=== PATIENT | male | born 1940 | race Caucasian/White ===

== ENCOUNTER → 2022-07-27 | Outpatient (CLI) | payer MEDICARE ==
[2022-07-27 12:20] LABS: BASOPHILS % (AUTO) 0 % (0-10); EOSINOPHILS # (AUTO) 0.1 10^3/uL (0.0-0.3); EOSINOPHILS % (AUTO) 2 % (0-10); HEMATOCRIT 39 % (40-54); HEMOGLOBIN 13.4 g/dL (13.3-17.7); LYMPHOCYTES # (AUTO) 1.5 10^3/uL (1.0-4.0); LYMPHOCYTES % (AUTO) 21 % (12-44); MEAN CORPUSCULAR HEMOGLOBIN 33 pg (25-34); MEAN CORPUSCULAR HGB CONC 34 g/dL (32-36); MEAN CORPUSCULAR VOLUME 94 fL (80-99); MEAN PLATELET VOLUME 9.3 fL (9.0-12.2); MONOCYTES # (AUTO) 0.5 10^3/uL (0.0-1.0); MONOCYTES % (AUTO) 7 % (0-12); NEUTROPHILS % (AUTO) 69 % (42-75); PLATELET COUNT 184 10^3/uL (130-400); WHITE BLOOD COUNT 7.2 10^3/uL (4.3-11.0)
[2022-07-27 12:34] LABS: BILIRUBIN,URINE NEGATIVE (NEGATIVE); CLARITY,URINE CLOUDY; COLOR,URINE YELLOW; GLUCOSE, URINE (UA) NEGATIVE (NEGATIVE); KETONES,URINE TRACE (NEGATIVE); LEUKOCYTE ESTERASE ,URINE 1+ (NEGATIVE); NITRITE,URINE NEGATIVE (NEGATIVE); PROTEIN,URINE TRACE (NEGATIVE)
[2022-07-27 12:41] LABS: CALCIUM 9.5 MG/DL (8.5-10.1); CREATININE SERUM 1.26 MG/DL (0.60-1.30); POTASSIUM 3.8 MMOL/L (3.6-5.0)
[2022-07-27 12:47] LABS: BACTERIA,URINE MODERATE /HPF; SQUAMOUS EPITHELIAL CELL,UR 0-2 /HPF
--- NOTE | 2022-07-27 12:58 | Diagnostic Imaging Report ---
INDICATION: Preoperative evaluation prior to knee surgery. COMPARISON: None. FINDINGS: Frontal and lateral views of the chest demonstrate normal heart size and pulmonary vascularity. The lungs are clear. There are no signs of infiltrate, pleural effusions or pneumothoraces. Calcified granuloma of the right upper lung is noted. The visualized osseous structures show no acute abnormalities. IMPRESSION: 1. No acute process. No signs of infiltrates, effusions or pneumothoraces. Dictated by: Dictated on workstation # [id number]
--- NOTE | 2022-07-27 14:01 | Diagnostic Imaging Report ---
INDICATION: Preoperative evaluation prior to total knee replacement. COMPARISON: None. FINDINGS: Multiple radiographic views of the left knee were obtained and show advanced tricompartmental osteoarthritic changes. This consists of joint space narrowing with osteophyte formations, greatest involving the medial tibial femoral compartment. No acute osseous abnormality is seen. Osseous structures are intact. Joint spaces are maintained. Small suprapatellar joint effusion is also noted. No unexpected radiopaque foreign bodies are seen. IMPRESSION: 1. No acute fracture or dislocation of the left knee. 2. Advanced osteoarthritic changes. Dictated by: Dictated on workstation # [id number]
== END ==
LOC: ORTHO 10:31
PROVIDERS: ATTEND Orthopaedic Surgery
DX: Z01.818 Encounter for other preprocedural examination (principal); M17.12 Unilateral primary osteoarthritis, left knee
CPT/HCPCS: 71046; 73564; 80048; 81000; 85025; 87088; G0463; 36415; 87077; 99213

== ENCOUNTER 2022-08-03 05:31 | Outpatient (CLI) | payer MEDICARE ==
[~2022-08-03] VITALS: Ht 167.6 cm; Wt 69.5 kg
[2022-08-03 13:15] VITALS: BP 96/53
[2022-08-03] MEDS ORDERED: HYDR453.3 TP (13:41)
[2022-08-03] MEDS ORDERED: FLUC100T10 PO (13:41)
[2022-08-03] MEDS ORDERED: FINA5TAB6 PO (13:41)
[2022-08-03] MEDS ORDERED: CLOT10PO MC (13:41)
[2022-08-03] MEDS ORDERED: ASPI-999 PO (13:41)
[2022-08-03] MEDS ORDERED: VITA1CAP PO (13:41)
[2022-08-03] MEDS ORDERED: TOPI25TA10 PO (13:41)
[2022-08-03] MEDS ORDERED: NITR0.3T7 SL (13:41)
[2022-08-03] MEDS ORDERED: CLOP75TA28 PO (13:41)
[2022-08-03] MEDS ORDERED: ZOLM5TAB8 PO (13:41)
[2022-08-03] MEDS ORDERED: ATOR10TA66 PO (13:41)
[2022-08-03] MEDS ORDERED: MULT-1136 PO (13:41)
[2022-08-03] MEDS ORDERED: VNL75T PO (13:41)
[2022-08-03] MEDS ORDERED: ACET325T49 PO (13:41)
[2022-08-03] MEDS ORDERED: TR1C15 TP (13:41)
[2022-08-03] MEDS ORDERED: TMSL.4C PO (13:41)
[2022-08-03] MEDS ORDERED: CARV3.122 PO (13:41)
[2022-08-03] MEDS ORDERED: FLUO15CR35 TP (13:41)
== END 2022-08-05 10:04 | disposition home or self-care (01) ==
LOC: PREOP 05:31
PROVIDERS: ATTEND Orthopaedic Surgery
DX: Z01.818 Encounter for other preprocedural examination (principal); M17.12 Unilateral primary osteoarthritis, left knee
CPT/HCPCS: 87081; 93005

== ENCOUNTER → 2022-08-04 | Outpatient (CLI) | payer MEDICARE ==
[~2022-08-04] MED LIST: ACET325T49 PO; ASPI-999 PO; ATOR10TA66 PO; CARV3.122 PO; CLOP75TA28 PO; CLOT10PO MC; FINA5TAB6 PO; FLUC100T10 PO; FLUO15CR35 TP; HYDR453.3 TP; MULT-1136 PO; NITR0.3T7 SL; TMSL.4C PO; TOPI25TA10 PO; TR1C15 TP; VITA1CAP PO; VNL75T PO; ZOLM5TAB8 PO
--- NOTE | 2022-08-04 10:14 | Diagnostic Imaging Report ---
Exam: CT left knee without contrast. Date: August 04, 2022. Indication: 81-year-old male, chronic left knee pain. Surgical planning. Comparison: Left knee radiographs July 27, 2022. Technique: Axial CT images of the knee without contrast were obtained. Coronal and sagittal reformats were obtained and provided. Axial CT images at the level of the hip and ankle were also obtained for measurements of femoral version and tibial torsion and surgical planning. All CT scans use one or more of the following dose optimizing techniques: automated exposure control, MA and/or KvP adjustment based on patient size and exam type or iterative reconstruction. Findings: There is a fat-containing left inguinal hernia. The prostate gland is somewhat prominent in size. There is severe medial and patellofemoral compartment joint space loss. There are tricompartmental osteophytes. There is no pronounced narrowing of the lateral compartment. There is no knee joint effusion. There is no acute fracture. There is no aggressive bone lesion. There is a Kinney's cyst. Impression: 1. Severe tricompartmental osteoarthritis of the left knee most notably involving the medial and patellofemoral compartments. Dictated by: Dictated on workstation # [id number]
== END ==
LOC: RAD 09:00
PROVIDERS: ATTEND Orthopaedic Surgery
DX: M17.12 Unilateral primary osteoarthritis, left knee (principal)
CPT/HCPCS: 73700

== ENCOUNTER 2022-08-09 06:05 | Day surgery (SDC) | payer MEDICARE ==
[~2022-08-09] VITALS: Ht 167.6 cm; Wt 69.5 kg
[2022-08-09] VITALS (12 sets, daily range): BP systolic 110–193; BP diastolic 62–97
[2022-08-09] MEDS ORDERED: ceFAZolin INJECTION 1,000 MG in NS (IVPB) 50 ML IV ONE (06:15)
[2022-08-09] MEDS: LACTATED RINGERS 1,000 ML IV PRN ×3 (06:23→14:59)
[2022-08-09] MEDS ORDERED: BUPIVACAINE 0.5% 30 ML (SENSORCAINE) VIAL ONE (07:00)
[2022-08-09] MEDS ORDERED: TRANEXAMIC ACID 100 MG/ML 10 ML INJECTION ONE (07:00)
[2022-08-09] MEDS ORDERED: ONDANSETRON 4 MG/2 ML (SDV) Z0FRAN ONE (07:00)
[2022-08-09] MEDS ORDERED: fentaNYL INJ 100 MCG/2 ML AMP ONE (07:01)
[2022-08-09] MEDS ORDERED: MIDAZOLAM 2 MG/2 ML (VERSED) VIAL ONE (07:02)
--- NOTE | 2022-08-09 07:19 | Progress Note-Pre Operative ---
Pre-Operative Progress Note Date of Available H&P: Jul 27, 2022 Date H&P Reviewed: Aug 09, 2022 Time H&P Reviewed: 07:10 History & Physical: H&P Reviewed, Patient Examed, No changes noted Pre-Operative Diagnosis: Left Knee Primary Osteoarthritis DAVID BAILEY MD Aug 09, 2022 07:18
[2022-08-09] MEDS ORDERED: PROPOFOL INJECTION 50 ML IV ONE (09:47)
--- NOTE | 2022-08-09 10:03 | Operative Report - Ortho ---
Operative Report Surgeon (s)/Technical Planner (s) Surgeon DAVID BAILEY MD Technical Planner n/a Pre-Operative Diagnosis Left Knee Primary Osteoarthritis Post-Operative Diagnosis same Operative Report Date of Procedure: Aug 09, 2022 Name of Procedure Performed: Robotic Assisted Left Total Knee Arthroplasty Description & Findings After obtaining informed consent and marking the patient in the preoperative holding area, the patient did receive IV antibiotics. Patient was taken to the operating room and anesthesia was induced. Surgical timeout was taken. The left lower extremity was prepped and draped in the usual sterile fashion. Incision was made and carried down to fascia. Arthrotomy was performed on the medial side of the patella. Patella was retracted laterally and knee was flexed. Found to have circumferential osteophtye around the distal femur as well as exposed bone in the medial compartment. ACL and anterior horns of the menisci were removed. 3.2 mm pins were placed in the medial femoral condyle for the femoral array and checkpoint was placed next to the pins. 3.2 mm pins were placed in the proximal tibia and checkpoint was placed there as well. Arrays were placed and tightened into position. The femur and tibia were then registered. Osteophytes were removed. The knee was then tensioned with varus and valgus stress in extension and flexion. Measurements were captured and adjustments were made to the preoperative plan to balance the flexion and extension gaps. Robotic arm was brought into position and all femoral cuts as well as the tibial cut were performed. Bone blocks were removed. Lamina black top roller was placed and the remainder of the mensici as well as posterior osteophytes were removed. The knee was trialed with a size 4 femur and a size 4 tibia with a 9 mm poly trial. It was found to come out to full extension and flexed beyond 120 degrees. It was stable to varus and valgus stress throughout its range of motion. This was accepted. Knee was brought out into extension and the patella was measured at less than 20 mm of thickness. Osteophytes were removed from around the perimeter of the patella. Patella tracked well through the trochlear groove of the femur. Lug holes were drilled in the distal femur. Trial implants were removed. Tibial tray was pinned and punched. The cut bone surfaces were lavaged with pulsatile normal saline. Cement was mixed. Implants were opened and assembled on the back table. Cement was applied to the cut bone surface as well as the implant. A size 2 tibial component was impacted into place; excess cement was removed using the freer. A size 2 femoral component was impacted into place and excess cement was removed using a freer. Tibial tray was lavaged with saline. A 9 mm thick polyethylene component was locked into placed and the locking mechanism was checked. Knee was brought into extension. Betadine soak was performed and then, the knee was irrigated with normal saline. The knee was once again trialed; found to come to full extension, flexed beyond 120 degrees, and was stable to varus and valgus stress. Tourniquet was dropped and electrocautery was used for hemostasis. Fascial layer was closed with #2 Stratafix. The subcutaneous layer was closed with 2-0 Vicryl. The skin was closed with toni. Wound was dressed with xeroform, 4x4s, ABD, webril, and OSMAR wrap. Patient tolerated the procedure well and was stable to the recovery room. Anesthesia Type Spinal Estimated Blood Loss 150 mL Specimen(s) collected/removed None DAVID BAILEY MD Aug 09, 2022 10:03
[2022-08-09] MEDS ORDERED: ACETAMINOPHEN 500 MG TAB (TYLENOL) PO PRN (10:15)
[2022-08-09] MEDS ORDERED: NS IV 1000 ML 1,000 ML IV SCH (10:15)
[2022-08-09] MEDS ORDERED: TRIAMCINOLONE 0.1% CR (KENALOG) 15 GM TUBE TP SCH (10:15)
[2022-08-09] MEDS ORDERED: BISACODYL 5 MG (DULCOLAX) TABLET PO PRN (10:15)
[2022-08-09] MEDS ORDERED: ONDANSETRON 4 MG/2 ML (SDV) Z0FRAN IV PRN (10:15)
[2022-08-09] MEDS ORDERED: NITROGLYCERIN 0.3 MG SL SCH (10:15)
[2022-08-09] MEDS ORDERED: MILK OF MAGNESIA 400 MG/5 ML 30 ML UDC PO PRN (10:15)
[2022-08-09] MEDS ORDERED: ZOLMITRIPTAN 5 MG PO SCH (10:15)
--- NOTE | 2022-08-09 10:50 | Diagnostic Imaging Report ---
CLINICAL INDICATION: Patient post total knee arthroplasty. EXAM: X-ray left knee, 2 views. COMPARISON: X-ray left knee dated 07/27/2022. FINDINGS: There is interval placement of left total knee arthroplasty components in good position. There is compressive device and skin toni overlying the anterior aspect of left knee. There is air in the left knee joint space and adjacent soft tissue. IMPRESSION: There is left total knee arthroplasty components in good position. There is no unexpected radiodense foreign object. Dictated by: Dictated on workstation # [id number]
--- NOTE | 2022-08-09 11:34 | Consultation ---
HPI History of Present Illness: HPI/Chief Complaint CC: Left knee replacement with HTN OOC HPI: This is an 81yoWM clinic patient of PCP in [facility] in [place], [place] who presents following an uncomplicated left knee replacement. He has an elevated BP of which I will add meds to control. No pain reported and has received a good anesthesia block. Daughter and MERLIN and of 17 years are at the bedside and they have no concerns. Source: patient, family Exam Limitations: no limitations Date Seen 08/09/22 Attending Physician No,Local Physician PCP Admitting Physician: Attending Physician: Neil Mena MD Referring Physician Date of Admission Home Medications & Allergies Home Medications Reviewed patient Home Medication Reconciliation performed by pharmacy medication reconciliations supervisor sound technician and/or nursing. Patients Allergies have been reviewed. Allergies Allergies Coded Allergies Sulfa (Sulfonamide Antibiotics) (Verified Allergy, Unknown, reddened,itchy, 03/17) Past Deihsem-Loriim-Yzoksl Hx Past Med/Social Hx: Reviewed Nursing Past Med/Soc Hx, Reviewed and Corrections made Patient Social History Marrital Status: Employed/Student: retired Alcohol Use: Denies Use Recreational Drug Use: No Smoking Status: Former Smoker Former Smoker, Quit: Aug 04, 1975 2nd Hand Smoke Exposure: No Recent Hopitalizations: No Seasonal Allergies Seasonal Allergies: No Past Medical History Surgeries: Orthopedic Currently Using CPAP: No Currently Using BIPAP: No Cardiac: Coronary Artery Disease, High Cholesterol, Hypertension Neurological: Headaches /Migraines Sexually Transmitted Disease: No HIV/AIDS: No Musculoskeletal: Arthritis Endocrine: Diabetes, Non-Insulin dep HEENT: Cataract Psychosocial: Depression History of Blood Disorders: No Adverse Reaction to Blood Rhodes: No (NO TRANSFUSIONS) Review of Systems Constitutional: see HPI EENTM: no symptoms reported Respiratory: no symptoms reported Cardiovascular: no symptoms reported Gastrointestinal: no symptoms reported Genitourinary: no symptoms reported Musculoskeletal: back pain, joint pain Skin: no symptoms reported Psychiatric/Neurological: No Symptoms Reported All Other Systems Reviewed Negative Unless Noted: Yes Physical Exam Physical Exam Vital Signs Vital Signs - First Documented 08/09/22 08/09/22 06:00 09:54 Temp 36.2 Pulse 60 Resp 18 B/P (MAP) 149/72 (97) Pulse Ox 95 O2 Delivery Room Air Capillary Refill : Less Than 3 Seconds Height, Weight, BMI Height: '" Weight: lbs. oz. kg; 24.74 BMI Method: General Appearance: No Apparent Distress, WD/WN, Chronically ill Eyes: Bilateral Eye Normal Inspection, Bilateral Eye PERRL HEENT: PERRL/EOMI, Normal ENT Inspection, Pharynx Normal Neck: Full Range of Motion, Normal Inspection, Non Tender, Supple, Carotid Bruit Respiratory: Chest Non Tender, Lungs Clear, Normal Breath Sounds, No Accessory Muscle Use, No Respiratory Distress Cardiovascular: Regular Rate, Rhythm, No Edema, No Gallop, No JVD, No Murmur, Normal Peripheral Pulses Gastrointestinal: Normal Bowel Sounds, No Organomegaly, No Pulsatile Mass, Non Tender, Soft Back: Normal Inspection, No CVA Tenderness, No Vertebral Tenderness Extremity: Normal Capillary Refill, Normal Inspection, Normal Range of Motion (left leg), Non Tender, No Calf Tenderness, No Pedal Edema Neurologic/Psychiatric: Alert, Oriented x3, No Motor/Sensory Deficits, Normal Mood/Affect Skin: Normal Color, Warm/Dry Lymphatic: No Adenopathy Results Results/Procedures Labs Patient resulted labs reviewed. Assessment/Plan Assessment and Plan Assess & Plan/Chief Complaint Assessment: Left knee replacement HTN OOC CAD HLP BPH Plan: Monitor closely Pain control BP control THAI LINDSAY DO Aug 09, 2022 11:34
[2022-08-09] MEDS ORDERED: cloNIDine 0.1 MG (CATAPRES) TAB PO PRN (11:45)
[2022-08-09] MEDS ORDERED: amLODIPine 5 MG (NORVASC) TAB PO NR (12:00)
--- NOTE | 2022-08-09 13:31 | Physical Therapy Evaluation ---
PT Evaluation-General Medical Diagnosis Admission Date August 09, 2022 Medical Diagnosis: left knee OA Onset Date: Aug 09, 2022 Therapy Diagnosis Therapy Diagnosis: debility/weakness Precautions Precautions/Isolations: Fall Prevention, Standard Precautions Weight Bear Status Right Lower Extremity: Right Full Weight Bearing Left Lower Extremity: Left Weight Bearing/Tolerated Referral Physician: Rajesh Reason for Referral: Evaluation/Treatment Medical History Pertinent Medical History: OA Current History s/p elective left TKR Reviewed History: Yes Social History Home: Single Level Current Living Status: Spouse Prior Prior Level of Function SCALE: Activities may be completed with or without assistive devices. 9-Snalaucjbo-fzoudpf completes the activity by him/herself with no assistance from a helper. 5-Set-up or Clean-up Assistance-helper sets up or cleans up; patient completes activity. [place] assists only prior to or following the activity. 4-Supervision or Touching Assistance-helper provides verbal cues and/or touching/steadying and/or contact guard assistance as patient completes activity. Assistance may be provided throughout the activity or intermittently. 3-Partial/Moderate Assistance-helper does LESS THAN HALF the effort. [place] lifts, holds or supports trunk or limbs, but provides less than half the effort. 2-Substantial/Maximal Assistance-helper does MORE THAN HALF the effort. [place] lifts or holds trunk or limbs and provides more than half the effort. 7-Tdhyqfgkw-afvhom does ALL the effort. Patient does none of the effort to complete the activity. Or, the assistance of 2 or more helpers is required for the patient to complete the activity. If activity was not attempted, code reason: 7-Patient Refused. 9-Not Applicable-not attempted and the patient did not perform the activity before the current illness, exacerbation or injury. 10-Not Attempted due to Environmental Limitations-(lack of equipment, weather restraints, etc.). 88-Not Attempted due to Medical Conditions or Safety Concerns. Bed Mobility: 6 Transfers (B,C,W/C): 6 Gait: 6 Stairs: 6 Indoor Mobility (Ambulation): Independent Stairs: Independent Prior Devices Use: None PT Evaluation-Current Subjective Patient agrees to PT. Pain Numeric Pain Scale: 0-No Pain Location: No Pain Reported Objective Patient Orientation: Normal For Age Attachments: Rowe Catheter, Polar Pack, IV ROM/Strength ROM Lower Extremities left LE limited due to OSMAR wrap/right LE WFL Strength Lower Extremities NT due to spinal block Integumentary/Posture Bladder Incontinence: Rowe Cath Posture WFL Neuromuscular (Tone, Coordination, Reflexes) diminished coordination bilateral LE due to spinal block Sensory Vision: Functional Hearing: Impaired Sensation Right Lower Extremit: Intact Sensation Left Lower Extremity: Impaired Transfers Roll Left to Right (QC): 2 Sit to Lying (QC): 2 Lying to Sitting/Side of Bed(Q: 2 Sit to Stand (QC): 88 Gait Does the Patient Walk?: No and Walking Goal IS indicated Balance Sitting Static: Fair Sitting Dynamic: Fair Assessment/Needs Patient will benefit from skilled PT to address functional strength and mobility to improve current LOF. Due to spinal block, PT will continue evaluation process during tomorrows session. Rehab Potential: Fair PT Awning Frame Maker Goals Chcf Goals PT Chcf Goals Time Frame: Aug 21, 2022 Roll Left & Right (QC): 6 Sit to Lying (QC): 6 Lying-Sitting on Side/Bed(QC): 6 Sit to Stand (QC): 6 Chair/Tzu-fp-Pernp Xfer(QC): 6 Toilet Transfer (QC): 6 Walk 10 feet (QC): 6 Walk 50ft with 2 Turns (QC): 6 Walk 150 ft (QC): 6 PT Plan Problem List Problem List: Activity Tolerance, Functional Strength, Safety, Balance, Gait, Transfer, Bed Mobility, ROM Treatment/Plan Treatment Plan: Continue Plan of Care Treatment Plan: Bed Mobility, Education, Functional Activity Fang, Functional Strength, Gait, Safety, Therapeutic Exercise, Transfers Treatment Duration: Aug 21, 2022 Frequency: 11 times per week Estimated Hrs Per Day: .5 hour per day Patient and/or Family Agrees t: Yes Time Time In: 1300 Time Out: 1315 DATE: Aug 09, 2022 Total Billed Treatment Time: 15 Total Billed Treatment 1 visit EVMoC 15 min SUGAR CATALAN PT Aug 09, 2022 13:31
[2022-08-09] MEDS: morphine INJ 4 MG/ML 1 ML (VIAL/SYRINGE) IVP PRN ×3 (15:00→21:24)
[2022-08-09] MEDS ORDERED: CYCLOBENZAPRINE 10 MG (FLEXERIL) TAB PO PRN (16:15)
[2022-08-09] MEDS ORDERED: LORazepam 0.5 MG (ATIVAN) TABLET PO PRN (16:30)
[2022-08-09] MEDS ORDERED: MELOXICAM 7.5 MG (MOBIC) TABLET PO NR (16:30)
[2022-08-09] MEDS: ASPIRIN E.C. 81 MG (ECOTRIN) TAB PO SCH (18:03)
[2022-08-09] MEDS: AtorvaSTATin TABLET 10 MG TABLET PO SCH (19:46)
[2022-08-09] MEDS: DOCUSATE SODIUM 100 MG (COLACE) CAP PO SCH (19:46)
[2022-08-09] MEDS: ceFAZolin INJECTION 2,000 MG in NS (IVPB) 50 ML IV SCH (19:46)
[2022-08-09] MEDS: toPIRamate 25 MG (TOPAMAX) TAB PO SCH (19:46)
[2022-08-09] MEDS: fluCOnazole (DIFLUCAN) 100 MG TAB PO SCH (19:47)
[2022-08-10] VITALS (7 sets, daily range): BP systolic 114–178; BP diastolic 58–76
[2022-08-10] MEDS: morphine INJ 4 MG/ML 1 ML (VIAL/SYRINGE) IVP PRN ×2 (02:08→09:42)
[2022-08-10] MEDS: ceFAZolin INJECTION 2,000 MG in NS (IVPB) 50 ML IV SCH (04:36)
[2022-08-10 05:54] LABS: BASOPHILS % (AUTO) 0 % (0-10); EOSINOPHILS # (AUTO) 0.1 10^3/uL (0.0-0.3); EOSINOPHILS % (AUTO) 1 % (0-10); HEMATOCRIT 36 % (40-54); HEMOGLOBIN 12.3 g/dL (13.3-17.7); LYMPHOCYTES # (AUTO) 1.2 10^3/uL (1.0-4.0); LYMPHOCYTES % (AUTO) 14 % (12-44); MEAN CORPUSCULAR HEMOGLOBIN 33 pg (25-34); MEAN CORPUSCULAR HGB CONC 34 g/dL (32-36); MEAN CORPUSCULAR VOLUME 96 fL (80-99); MONOCYTES # (AUTO) 0.7 10^3/uL (0.0-1.0); MONOCYTES % (AUTO) 8 % (0-12); NEUTROPHILS # (AUTO) 6.6 10^3/uL (1.8-7.8); NEUTROPHILS % (AUTO) 76 % (42-75); PLATELET COUNT 158 10^3/uL (130-400); WHITE BLOOD COUNT 8.7 10^3/uL (4.3-11.0)
[2022-08-10] MEDS: MULTIVIT W/MINERALS TAB (THERAGRAN M) PO SCH (06:08)
[2022-08-10 06:57] LABS: ALBUMIN 3.4 GM/DL (3.2-4.5); BILIRUBIN,TOTAL 0.9 MG/DL (0.1-1.0); CALCIUM 8.6 MG/DL (8.5-10.1); CREATININE SERUM 1.12 MG/DL (0.60-1.30); POTASSIUM 3.8 MMOL/L (3.6-5.0); TOTAL PROTEIN 5.8 GM/DL (6.4-8.2)
--- NOTE | 2022-08-10 08:11 | Physical Therapy Daily Note ---
PT Daily Note-Current Subjective Patient agrees to PT. Patient states, "I didn't think it was going to hurt this bad." PT educated patient on importance of taking pain medication. Pain Numeric Pain Scale: 8 Location: Left Location Body Site: Knee Pain Description: Acute Section J - Health Conditions 1. Rarely or not at all 2. Occasionally 3. Frequently 4. Almost constantly 8. Unable to answer Pain Effect on Sleep: 2 Pain Interference with Therapy: 2 Pain Interference w/Day-to-Day: 2 Mental Status Patient Orientation: Normal For Age Attachments: Rowe Catheter, Polar Pack Transfers SCALE: Activities may be completed with or without assistive devices. 0-Yzdkfnfkbv-uwlukjx completes the activity by him/herself with no assistance from a helper. 5-Set-up or Clean-up Assistance-helper sets up or cleans up; patient completes activity. [place] assists only prior to or following the activity. 4-Supervision or Touching Assistance-helper provides verbal cues and/or touching/steadying and/or contact guard assistance as patient completes activity. Assistance may be provided throughout the activity or intermittently. 3-Partial/Moderate Assistance-helper does LESS THAN HALF the effort. [place] lifts, holds or supports trunk or limbs, but provides less than half the effort. 2-Substantial/Maximal Assistance-helper does MORE THAN HALF the effort. [place] lifts or holds trunk or limbs and provides more than half the effort. 2-Kmjfowhpy-njhldz does ALL the effort. Patient does none of the effort to complete the activity. Or, the assistance of 2 or more helpers is required for the patient to complete the activity. If activity was not attempted, code reason: 7-Patient Refused. 9-Not Applicable-not attempted and the patient did not perform the activity before the current illness, exacerbation or injury. 10-Not Attempted due to Environmental Limitations-(lack of equipment, weather restraints, etc.). 88-Not Attempted due to Medical Conditions or Safety Concerns. Lying to Sitting/Side of Bed(Q: 6 Sit to Stand (QC): 4 Chair/Rqf-ns-Dtxvu Xfer(QC): 4 Weight Bearing Right Lower Extremity: Right Full Weight Bearing Left Lower Extremity: Left Weight Bearing/Tolerated Gait Training Distance: 80' Walk 10 feet (QC): 4 Walk 50 ft with 2 Turns(QC): 4 Gait Assistive Device: FWW slow, antalgic Exercises Supine Ex: Ankle pumps, Quad Set, Heel Slides, Straight leg raise Supine Reps: 15 (AAROM) Seated Therapy Exercises: Long arc quads Seated Reps: 15 Assessment Patient had bloody drainage during session. PT requested RN reinforce with another jamar wrap and report to physician. PT to increase activity as tolerated by patient. Patient up in recliner with needs met. PT Vitamin Manager Goals Vitamin Manager Goals PT Vitamin Manager Goals Time Frame: Aug 21, 2022 Roll Left & Right (QC): 6 Sit to Lying (QC): 6 Lying-Sitting on Side/Bed(QC): 6 Sit to Stand (QC): 6 Chair/Wrr-mr-Dthve Xfer(QC): 6 Toilet Transfer (QC): 6 Walk 10 feet (QC): 6 Walk 50ft with 2 Turns (QC): 6 Walk 150 ft (QC): 6 PT Plan Treatment/Plan Treatment Plan: Continue Plan of Care Treatment Plan: Bed Mobility, Education, Functional Activity Fang, Functional Strength, Gait, Safety, Therapeutic Exercise, Transfers Treatment Duration: Aug 21, 2022 Frequency: 11 times per week Estimated Hrs Per Day: .5 hour per day Patient and/or Family Agrees t: Yes Time Time In: 730 Time Out: 756 DATE: Aug 10, 2022 Total Billed Treatment Time: 26 Total Billed Treatment 1 visit EX 13 min GT 13 min SUGAR CATALAN PT Aug 10, 2022 08:11
--- NOTE | 2022-08-10 08:24 | Progress Note - Ortho ---
Progress Note Subjective Date of Exam 08/10/22 Chief Complaint POD #1 L TKA HPI/Events since last exam having difficulty with pain control, has had some drainage from dressing Review of Systems - Allergies: Coded Allergies: Sulfa (Sulfonamide Antibiotics) (Verified Allergy, Unknown, reddened,itchy, 08/03/22) Home Meds Reported Medications Clotrimazole (Clotrimazole) Unknown Strength Powder, MC UD, EA 08/03/22 Finasteride (Finasteride) 5 Mg Tablet, 5 MG PO DAILY, TAB 08/03/22 Zolmitriptan (Zomig) 5 Mg Tablet, 5 MG PO UD, TAB 08/03/22 Vitamin B Complex (Vitamin B Complex) 1 Each Capsule, 1 EACH PO DAILY, CAP 08/03/22 Venlafaxine HCl (Venlafaxine HCl) 75 Mg Tab, 75 MG PO DAILY, TAB 08/03/22 Triamcinolone Acet (Triamcinolone Acetonide 0.1% Cream) 0.1 % Cr, 15 GM TP UD, EA 08/03/22 Topiramate (Topiramate) 25 Mg Tablet, 25 MG PO BID, TAB 08/03/22 Tamsulosin HCl (Flomax) 0.4 Mg Cap, 0.4 MG PO DAILY, CAP 08/03/22 Nitroglycerin (Nitroglycerin) 0.3 Mg Tab.subl, 0.3 MG SL UD, TAB 08/03/22 Multivitamin (Multivitamin) 1 Each Tablet, 1 EACH PO DAILY, TAB 08/03/22 Hydrocortisone (Hydrocortisone) 2.5 % Cream..g., 453.6 GM TP UD, EA 08/03/22 Fluocinolone Acetonide (Fluocinolone Acetonide) 0.01 % Cream..g., 15 GM TP UD, EA 08/03/22 Fluconazole (Fluconazole) 100 Mg Tablet, 100 MG PO BID, TAB 08/03/22 Clopidogrel Bisulfate (Clopidogrel) 75 Mg Tablet, 75 MG PO DAILY, TAB 08/03/22 Carvedilol (Carvedilol) 3.125 Mg Tablet, 3.125 MG PO BID, TAB 08/03/22 Atorvastatin Calcium (Atorvastatin Calcium) 10 Mg Tablet, 10 MG PO HS, TAB 08/03/22 Aspirin (Aspirin) 81 Mg Tab.chew, 81 MG PO DAILY, TAB 08/03/22 Acetaminophen (Acetaminophen) 325 Mg Tablet, 325 MG PO Q4H, TAB 08/03/22 Objective Exam L Knee: Dressing with some bloody drainage, dressing has shifted, +DF of ankle, no s/s of DVT Vital Signs Vital Signs Date Time Temp Pulse Resp B/P (MAP) Pulse Ox O2 Delivery O2 Flow Rate FiO2 08/10/22 07:21 36.7 65 18 151/68 (95) 98 Room Air 08/10/22 03:35 36.7 77 18 140/65 (90) 98 Room Air 08/09/22 23:16 36.4 70 18 157/67 (97) 97 Room Air 08/09/22 20:00 Room Air 08/09/22 19:50 36.8 69 18 153/67 (95) 98 Room Air 08/09/22 16:13 36.4 70 18 193/83 (119) 100 Room Air 08/09/22 16:12 36.4 70 18 193/83 (119) 100 Room Air 08/09/22 11:17 36.0 57 18 176/82 (113) 97 Room Air 08/09/22 10:45 Room Air 08/09/22 10:40 36.9 12 131/78 (95) 100 Room Air 08/09/22 10:35 Room Air 08/09/22 10:30 16 151/71 (97) 99 Room Air 08/09/22 10:20 12 127/97 (107) 99 Room Air 08/09/22 10:20 Room Air 08/09/22 10:10 16 138/73 (94) 96 Room Air 08/09/22 10:05 Room Air 08/09/22 10:00 16 123/69 (87) 95 Room Air 08/09/22 09:54 36.9 12 110/62 (78) 95 Room Air 08/09/22 09:54 Room Air I & O 08/10/22 06:59 Intake Total 1840 ml Output Total 2800 ml Balance -960 ml Lab Results Laboratory Tests 08/10/22 05:16: White Blood Count 8.7, Red Blood Count 3.77L, Hemoglobin 12.3L, Hematocrit 36L, Mean Corpuscular Volume 96, Mean Corpuscular Hemoglobin 33, Mean Corpuscular Hemoglobin Concent 34, Red Cell Distribution Width 14.2, Platelet Count 158, Mean Platelet Volume 10.0, Immature Granulocyte % (Auto) 1, Neutrophils (%) (Auto) 76H, Lymphocytes (%) (Auto) 14, Monocytes (%) (Auto) 8, Eosinophils (%) (Auto) 1, Basophils (%) (Auto) 0, Neutrophils # (Auto) 6.6, Lymphocytes # (Auto) 1.2, Monocytes # (Auto) 0.7, Eosinophils # (Auto) 0.1, Basophils # (Auto) 0.0, Immature Granulocyte # (Auto) 0.0, Sodium Level 136, Potassium Level 3.8, Chloride Level 108H, Carbon Dioxide Level 17L, Anion Gap 11, Blood Urea Nitrogen 18, Creatinine 1.12, Estimat Glomerular Filtration Rate 66, BUN/Creatinine Ratio 16, Glucose Level 147H, Calcium Level 8.6, Corrected Calcium 9.1, Total Bilirubin 0.9, Aspartate Amino Transf (AST/SGOT) 14, Alanine Aminotransferase (ALT/SGPT) 33, Alkaline Phosphatase 56, Total Protein 5.8L, Albumin 3.4 Imaging 2 postop views of the left knee dated 08/09/22 were reviewed from PACS and demonstrated total knee arthroplasty with components in good position Assessment and Plan Assessment Left Knee Primary Osteoarthritis s/p TKA Problem List Left Knee Primary Osteoarthritis s/p TKA Plan PT/OT DVT Prophylaxis Pain Control Dressing Change Possibly home with home health tomorrow depending on progress Final Diagonsis Left Knee Primary Osteoarthritis s/p TKA Level of the visit: Level 3 (postop global) DAVID BAILEY MD Aug 10, 2022 08:24
[2022-08-10] MEDS: TAMSULOSIN 0.4 MG (FLOMAX) CAP PO SCH ×2 (08:51→12:27)
[2022-08-10] MEDS: amLODIPine 5 MG (NORVASC) TAB PO SCH ×2 (08:51→12:27)
[2022-08-10] MEDS: FINASTERIDE (PROSCAR) 5 MG TAB PO SCH ×2 (08:51→12:27)
[2022-08-10] MEDS: DOCUSATE SODIUM 100 MG (COLACE) CAP PO SCH (08:51)
[2022-08-10] MEDS: MELOXICAM 7.5 MG (MOBIC) TABLET PO SCH ×2 (08:51→12:27)
[2022-08-10] MEDS: CLOPIDOGREL 75 MG (PLAVIX) TABLET PO SCH ×2 (08:51→12:27)
[2022-08-10] MEDS: ASPIRIN E.C. 81 MG (ECOTRIN) TAB PO SCH ×2 (08:51→17:38)
[2022-08-10] MEDS: VENlafaxine 75 MG (EFFEXOR) TAB PO SCH ×2 (08:51→12:27)
[2022-08-10] MEDS: toPIRamate 25 MG (TOPAMAX) TAB PO SCH ×2 (08:51→20:43)
--- NOTE | 2022-08-10 09:36 | Anesthesia-Regional Post-Op ---
Regional Patient Condition Mental Status: Alert, Oriented x3 Circulation: Same as Pre-Op Headache: Absent Sensation: Full Recovery Motor Block: Absent Post Op Complications Complications None Follow Up Care/Instructions Patient Instructions None needed. Anesthesia/Patient Condition Patient is doing well, no complaints, stable vital signs, no apparent adverse anesthesia problems. No complications reported per nursing. ANDREW RICHARDS CRNA Aug 10, 2022 09:36
[2022-08-10] MEDS ORDERED: SENNA W/DOCUSATE (SENOKOT S) TABLET PO ONE (10:00)
[2022-08-10] MEDS ORDERED: LACTULOSE SYRUP 10GM/15ML (ENULOSE) 30ML UDC PO NR (10:00)
--- NOTE | 2022-08-10 10:17 | Progress Note ---
RAMESHDIONI Ravi 08/10/22 1017: Subjective Date Seen by a Provider: Aug 10, 2022 Time Seen by a Provider: 08:00 Subjective/Events-last exam f/u on s/p day 1 left TKA Today patient is resting in armchair with in room. Pt reports significant left knee pain 10/10 with minimal improvement with pain meds. Pt also reports he has not had a BM in 3 days. Pt denies any CP, SOB, nausea, chills, weakness. No new sx. No other complaints. Review of Systems Gastrointestinal: Constipation Musculoskeletal: other (left knee pain s/p TKA) Objective Exam Last Set of Vital Signs Vital Signs Date Time Temp Pulse Resp B/P (MAP) Pulse Ox O2 Delivery O2 Flow Rate FiO2 08/10/22 07:21 36.7 65 18 151/68 (95) 98 Room Air Capillary Refill : Less Than 3 Seconds I&O Intake and Output 08/10/22 00:00 Intake Total 1590 ml Output Total 2425 ml Balance -835 ml Intake Oral 490 ml IV Total 1100 ml Output Urine Total 2425 ml General: Alert, Oriented X3 HEENT: Atraumatic, EOMI Neck: Supple Lungs: Clear to Auscultation, Normal Air Movement Heart: Regular Rate, No Murmurs Extremities: Normal Pulses Neuro: Normal Speech Psych/Mental Status: Mental Status NL Results Lab Laboratory Tests 08/10/22 05:16: White Blood Count 8.7, Red Blood Count 3.77L, Hemoglobin 12.3L, Hematocrit 36L, Mean Corpuscular Volume 96, Mean Corpuscular Hemoglobin 33, Mean Corpuscular Hemoglobin Concent 34, Red Cell Distribution Width 14.2, Platelet Count 158, Mean Platelet Volume 10.0, Immature Granulocyte % (Auto) 1, Neutrophils (%) (Auto) 76H, Lymphocytes (%) (Auto) 14, Monocytes (%) (Auto) 8, Eosinophils (%) (Auto) 1, Basophils (%) (Auto) 0, Neutrophils # (Auto) 6.6, Lymphocytes # (Auto) 1.2, Monocytes # (Auto) 0.7, Eosinophils # (Auto) 0.1, Basophils # (Auto) 0.0, Immature Granulocyte # (Auto) 0.0, Sodium Level 136, Potassium Level 3.8, Chloride Level 108H, Carbon Dioxide Level 17L, Anion Gap 11, Blood Urea Nitrogen 18, Creatinine 1.12, Estimat Glomerular Filtration Rate 66, BUN/Creatinine Ratio 16, Glucose Level 147H, Calcium Level 8.6, Corrected Calcium 9.1, Total Bilirubin 0.9, Aspartate Amino Transf (AST/SGOT) 14, Alanine Aminotransferase (ALT/SGPT) 33, Alkaline Phosphatase 56, Total Protein 5.8L, Albumin 3.4 Microbiology 08/09/22 MRSA Screen - Final, Complete MRSA not isolated Assessment/Plan Assessment/Plan Assess & Plan/Chief Complaint Left TKA HTN OOC CAD HLP BPH Plan: Monitor closely Pain control BP control PT/OT Continue home meds as indicated Disposition: likely home tomorrow pending patient status PEBBLES LINDSAY DO 08/11/22 0455: Supervisory-Addendum Brief Verification & Attestation Participated in pt care: history, MDM, physical Personally performed: exam, history, MDM, supervision of care Care discussed with: Medical Student Procedures: n/a Results interpretation: Verified all documentation Verification and Attestation of Medical Student E/M Service A medical student performed and documented this service in my presence. I revi ewed and verified all information documented by the medical student and made modifications to such information, when appropriate. I personally performed the physical exam and medical decision making. Pebbles Lindsay, Aug 11, 2022,04:55 DIONI CHANDLER Aug 10, 2022 10:17 PEBBLES LINDSAY DO Aug 11, 2022 04:55
[2022-08-10] MEDS: HYDROcodone/APAP 7.5 MG/325 MG (LORTAB, LORCET PLUS) TABLET PO PRN ×3 (12:26→20:48)
--- NOTE | 2022-08-10 14:04 | Physical Therapy Daily Note ---
PT Daily Note-Current Subjective Patient agrees to PT. Pain Numeric Pain Scale: 5-Moderate Pain Location: Left Location Body Site: Knee Pain Description: Acute Section J - Health Conditions 1. Rarely or not at all 2. Occasionally 3. Frequently 4. Almost constantly 8. Unable to answer Pain Effect on Sleep: 2 Pain Interference with Therapy: 2 Pain Interference w/Day-to-Day: 2 Mental Status Patient Orientation: Normal For Age Attachments: [place] Transfers SCALE: Activities may be completed with or without assistive devices. 1-Nichulbjqq-vnxvqdr completes the activity by him/herself with no assistance from a helper. 5-Set-up or Clean-up Assistance-helper sets up or cleans up; patient completes activity. [place] assists only prior to or following the activity. 4-Supervision or Touching Assistance-helper provides verbal cues and/or touching/steadying and/or contact guard assistance as patient completes activity. Assistance may be provided throughout the activity or intermittently. 3-Partial/Moderate Assistance-helper does LESS THAN HALF the effort. [place] lifts, holds or supports trunk or limbs, but provides less than half the effort. 2-Substantial/Maximal Assistance-helper does MORE THAN HALF the effort. [place] lifts or holds trunk or limbs and provides more than half the effort. 9-Fitcxzgse-dsxmoi does ALL the effort. Patient does none of the effort to complete the activity. Or, the assistance of 2 or more helpers is required for the patient to complete the activity. If activity was not attempted, code reason: 7-Patient Refused. 9-Not Applicable-not attempted and the patient did not perform the activity before the current illness, exacerbation or injury. 10-Not Attempted due to Environmental Limitations-(lack of equipment, weather restraints, etc.). 88-Not Attempted due to Medical Conditions or Safety Concerns. Sit to Lying (QC): 6 Lying to Sitting/Side of Bed(Q: 6 Sit to Stand (QC): 4 Chair/Kfq-oc-Utnul Xfer(QC): 4 Weight Bearing Right Lower Extremity: Right Full Weight Bearing Left Lower Extremity: Left Weight Bearing/Tolerated Gait Training Distance: 250' Walk 10 feet (QC): 4 Walk 50 ft with 2 Turns(QC): 4 Walk 150 ft (QC): 4 Gait Assistive Device: FWW slow, reciprocal pattern Exercises Supine Ex: Ankle pumps, Quad Set, Heel Slides, Straight leg raise Supine Reps: 15 Assessment Patient tolerated treatment well with improved left knee AROM. PT to increase activity as tolerated by patient. Patient and spouse plan dismissal tomorrow after therapy. PT Senior Support Analyst Goals Senior Support Analyst Goals PT Snf Goals Time Frame: Aug 21, 2022 Roll Left & Right (QC): 6 Sit to Lying (QC): 6 Lying-Sitting on Side/Bed(QC): 6 Sit to Stand (QC): 6 Chair/Obv-bz-Fiple Xfer(QC): 6 Toilet Transfer (QC): 6 Walk 10 feet (QC): 6 Walk 50ft with 2 Turns (QC): 6 Walk 150 ft (QC): 6 PT Plan Treatment/Plan Treatment Plan: Continue Plan of Care Treatment Plan: Bed Mobility, Education, Functional Activity Fang, Functional Strength, Gait, Safety, Therapeutic Exercise, Transfers Treatment Duration: Aug 21, 2022 Frequency: 11 times per week Estimated Hrs Per Day: .5 hour per day Patient and/or Family Agrees t: Yes Time Time In: 1336 Time Out: 1351 DATE: Aug 10, 2022 Total Billed Treatment Time: 15 Total Billed Treatment 1 visit FA 15 min SUGAR CATALAN PT Aug 10, 2022 14:04
--- NOTE | 2022-08-10 14:44 | Occupational Therapy Eval ---
OT Evaluation-General/PLF Medical Diagnosis Admission Date Medical Diagnosis: left knee OA Onset Date: Aug 09, 2022 Therapy Diagnosis Therapy Diagnosis: weakness Precautions Precautions/Isolations: Standard Precautions Weight Bear Status Weight Bearing Restriction: Weight Bearing/Tolerated Location Restriction: L LE Referral Physician: Rajesh Referral Reason: Evaluation/Treatment Medical History Pertinent Medical History: OA Current History s/p L TKA Reviewed History: Yes Social History Home: Single Level Current Living Status: Spouse ADL-Prior Level of Function SCALE: Activities may be completed with or without assistive devices. 7-Qhyktmratp-pnsygxy completes the activity by him/herself with no assistance from a helper. 5-Set-up or Clean-up Assistance-helper sets up or cleans up; patient completes activity. [place] assists only prior to or following the activity. 4-Supervision or Touching Assistance-helper provides verbal cues and/or touching/steadying and/or contact guard assistance as patient completes activity. Assistance may be provided throughout the activity or intermittently. 3-Partial/Moderate Assistance-helper does LESS THAN HALF the effort. [place] lifts, holds or supports trunk or limbs, but provides less than half the effort. 2-Substantial/Maximal Assistance-helper does MORE THAN HALF the effort. [place] lifts or holds trunk or limbs and provides more than half the effort. 6-Bgtkaqnyk-dwpnvr does ALL the effort. Patient does none of the effort to complete the activity. Or, the assistance of 2 or more helpers is required for the patient to complete the activity. If activity was not attempted, code reason: 7-Patient Refused. 9-Not Applicable-not attempted and the patient did not perform the activity before the current illness, exacerbation or injury. 10-Not Attempted due to Environmental Limitations-(lack of equipment, weather restraints, etc.). 88-Not Attempted due to Medical Conditions or Safety Concerns. Self Care: Independent Functional Cognition: Independent Drive Self: Yes OT Current Status Subjective Resting in bed agreeable to OT Mental Status/Objective Patient Orientation: Person, Place, Time, Situation Current Glasses/Contacts: Yes Upper Extremity ROM BUE ROM WFLS Upper Extremity Coordination INTACT FMC, LOB X1 STANDING AT BED, MIN ASSIST FROM OT TO RECOVER NO FALL Upper Extremity Strength -4/5 GROSSLY ADL-Treatment Eating (QC): 6 Oral Hygiene (QC): 5 Shower/Bathe Self (QC): 88 Upper Body Dressing (QC): 5 Lower Body Dressing (QC): 4 On/Off Footwear (QC): 5 Toileting Hygiene (QC): 5 Education OT Patient Education: Correct positioning, Modified ADL techniques, Progress toward Goal/Update tx plan, Purpose of tx/functional activities, Reviewed precautions, Rehab process, Safety issues, Transfer techniques, Use of adapted equipment Teaching Recipient: Patient, Family Teaching Methods: Demonstration, Discussion Response to Teaching: Return Demonstration OT Shelter Goals Inspector Watch Train Goals Eating (QC): 6 Oral Hygiene (QC): 6 Toileting Hygiene (QC): 6 Shower/Bathe Self (QC): 6 Upper Body Dressing (QC): 6 Lower Body Dressing (QC): 6 On/Off Footwear (QC): 6 1=Demonstrate adherence to instructed precautions during ADL tasks. 2=Patient will verbalize/demonstrate understanding of assistive devices/modifications for ADL. 3=Patient will improve strength/tolerance for activity to enable patient to perform ADL's. OT Education/Plan Problem List/Assessment Assessment: Decreased Activ Tolerance, Impaired Funct Balance, Impaired Self- Care Skills Discharge Recommendations Plan/Recommendations: Continue POC Treatment Plan/Plan of Care Treatment,Training & Education: Yes Patient would benefit from OT for education, treatment and training to promote independence in ADL's, mobility, safety and/or upper extremity function for ADL's. Plan of Care: ADL Retraining, Functional Mobility, UE Funct Exercise/Act Treatment Duration: Aug 14, 2022 Frequency: 3 times per week (3-5 TIMES PER WEEK) Estimated Hrs Per Day: .25 hour per day Agreement: Yes Rehab Potential: Fair Time Start Time: 13:35 Stop Time: 13:50 DATE: Aug 10, 2022 Total Time Billed (hr/min): 15 Billed Treatment Time EVL15 MIN LILIANA HUTCHINSON OT Aug 10, 2022 14:44
[2022-08-10] MEDS: fluCOnazole (DIFLUCAN) 100 MG TAB PO SCH (20:43)
[2022-08-10] MEDS: AtorvaSTATin TABLET 10 MG TABLET PO SCH (20:43)
[2022-08-11 04:00] VITALS: BP 110/66
[2022-08-11 06:16] LABS: BASOPHILS % (AUTO) 0 % (0-10); EOSINOPHILS # (AUTO) 0.2 10^3/uL (0.0-0.3); EOSINOPHILS % (AUTO) 3 % (0-10); HEMATOCRIT 34 % (40-54); HEMOGLOBIN 11.6 g/dL (13.3-17.7); LYMPHOCYTES # (AUTO) 1.2 10^3/uL (1.0-4.0); LYMPHOCYTES % (AUTO) 13 % (12-44); MEAN CORPUSCULAR HEMOGLOBIN 33 pg (25-34); MEAN CORPUSCULAR HGB CONC 34 g/dL (32-36); MEAN CORPUSCULAR VOLUME 96 fL (80-99); MEAN PLATELET VOLUME 10.4 fL (9.0-12.2); MONOCYTES # (AUTO) 0.8 10^3/uL (0.0-1.0); MONOCYTES % (AUTO) 10 % (0-12); NEUTROPHILS # (AUTO) 6.6 10^3/uL (1.8-7.8); NEUTROPHILS % (AUTO) 74 % (42-75); PLATELET COUNT 152 10^3/uL (130-400); WHITE BLOOD COUNT 8.9 10^3/uL (4.3-11.0)
[2022-08-11 06:26] LABS: ALBUMIN 3.1 GM/DL (3.2-4.5); POTASSIUM 3.5 MMOL/L (3.6-5.0)
[2022-08-11] MEDS: MULTIVIT W/MINERALS TAB (THERAGRAN M) PO SCH (06:27)
[2022-08-11] MEDS: HYDROcodone/APAP 7.5 MG/325 MG (LORTAB, LORCET PLUS) TABLET PO PRN ×2 (06:27→10:42)
[2022-08-11 06:28] LABS: CALCIUM 9.2 MG/DL (8.5-10.1)
[2022-08-11 06:29] LABS: TOTAL PROTEIN 5.7 GM/DL (6.4-8.2)
[2022-08-11 06:31] LABS: BILIRUBIN,TOTAL 0.7 MG/DL (0.1-1.0)
[2022-08-11 06:32] LABS: CREATININE SERUM 0.89 MG/DL (0.60-1.30)
[2022-08-11 07:54] VITALS: BP 122/66
[2022-08-11] MEDS ORDERED: LIDOCAINE 1% INJ 10 ML VIAL ONE (08:27)
--- NOTE | 2022-08-11 09:00 | Progress Note ---
DIONI CHANDLER 08/11/22 0900: Subjective Date Seen by a Provider: Aug 11, 2022 Time Seen by a Provider: 08:45 Subjective/Events-last exam f/u on s/p day 2 Left TKA today patient reports that his pain has improved. Reports it a 6/10 worse when moving. Pt has been using incentive spirometer as indicated. Pt has some drainage from left knee that ortho is managing. Pt denies any N/V, CP, or SOB. Pt denies any new or worsening sx. No other complaints. Review of Systems Musculoskeletal: other (left knee pain s/p TKA) Objective Exam Last Set of Vital Signs Vital Signs Date Time Temp Pulse Resp B/P (MAP) Pulse Ox O2 Delivery O2 Flow Rate FiO2 08/11/22 07:54 36.9 72 18 122/66 (84) 97 Room Air Capillary Refill : Less Than 3 Seconds I&O Intake and Output 08/11/22 00:00 Intake Total 1460 ml Output Total 825 ml Balance 635 ml Intake Oral 1410 ml IV Total 50 ml Output Urine Total 825 ml Bladder Scan Volume Amount 295 ml # Voids 1 # Bowel Movements 1 General: Alert, Oriented X3, Cooperative, No Acute Distress HEENT: EOMI Lungs: Clear to Auscultation, Normal Air Movement Heart: Regular Rate, No Murmurs Abdomen: Normal Bowel Sounds, Soft, No Tenderness Extremities: Normal Pulses Neuro: Normal Speech Psych/Mental Status: Mental Status NL Results Lab Laboratory Tests 08/11/22 05:16: White Blood Count 8.9, Red Blood Count 3.55L, Hemoglobin 11.6L, Hematocrit 34L, Mean Corpuscular Volume 96, Mean Corpuscular Hemoglobin 33, Mean Corpuscular Hemoglobin Concent 34, Red Cell Distribution Width 14.3, Platelet Count 152, Mean Platelet Volume 10.4, Immature Granulocyte % (Auto) 0, Neutrophils (%) (Auto) 74, Lymphocytes (%) (Auto) 13, Monocytes (%) (Auto) 10, Eosinophils (%) (Auto) 3, Basophils (%) (Auto) 0, Neutrophils # (Auto) 6.6, Lymphocytes # (Auto) 1.2, Monocytes # (Auto) 0.8, Eosinophils # (Auto) 0.2, Basophils # (Auto) 0.0, Immature Granulocyte # (Auto) 0.0, Sodium Level 134L, Potassium Level 3.5L, Chloride Level 106, Carbon Dioxide Level 18L, Anion Gap 10, Blood Urea Nitrogen 22H, Creatinine 0.89, Estimat Glomerular Filtration Rate 86, BUN/Creatinine Ratio 25, Glucose Level 139H, Calcium Level 9.2, Corrected Calcium 9.9, Total Bilirubin 0.7, Aspartate Amino Transf (AST/SGOT) 10, Alanine Aminotransferase (ALT/SGPT) 19, Alkaline Phosphatase 55, Total Protein 5.7L, Albumin 3.1L Microbiology 08/09/22 MRSA Screen - Final, Complete MRSA not isolated Assessment/Plan Assessment/Plan Assess & Plan/Chief Complaint Left TKA HTN OOC CAD HLP BPH Plan: Monitor closely Pain control BP control PT/OT Continue home meds as indicated Disposition: likely home tomorrow pending patient status PEBBLES LINDSAY DO 08/12/22 0438: Supervisory-Addendum Brief Verification & Attestation Participated in pt care: history, MDM, physical Personally performed: exam, history, MDM, supervision of care Care discussed with: Medical Student Procedures: n/a Results interpretation: Verified all documentation Verification and Attestation of Medical Student E/M Service A medical student performed and documented this service in my presence. I reviewed and verified all information documented by the medical student and made modifications to such information, when appropriate. I personally performed the physical exam and medical decision making. Pebbles Lindsay, Aug 12, 2022,04:37 DIONI CHANDLER Aug 11, 2022 09:00 PEBBLES LINDSAY DO Aug 12, 2022 04:38
[2022-08-11] MEDS: ASPIRIN E.C. 81 MG (ECOTRIN) TAB PO SCH (09:22)
[2022-08-11] MEDS: MELOXICAM 7.5 MG (MOBIC) TABLET PO SCH (09:22)
[2022-08-11] MEDS: CLOPIDOGREL 75 MG (PLAVIX) TABLET PO SCH (09:22)
[2022-08-11] MEDS: TAMSULOSIN 0.4 MG (FLOMAX) CAP PO SCH (09:22)
[2022-08-11] MEDS: VENlafaxine 75 MG (EFFEXOR) TAB PO SCH (09:22)
[2022-08-11] MEDS: toPIRamate 25 MG (TOPAMAX) TAB PO SCH (09:22)
[2022-08-11] MEDS: FINASTERIDE (PROSCAR) 5 MG TAB PO SCH (09:22)
[2022-08-11] MEDS: DOCUSATE SODIUM 100 MG (COLACE) CAP PO SCH (09:22)
[2022-08-11] MEDS: amLODIPine 5 MG (NORVASC) TAB PO SCH (09:22)
--- NOTE | 2022-08-11 10:39 | Discharge Summary ---
Discharge Summary Hospital Course Hospital Course Date of Admission: 08/09/22 Admission Diagnosis : Left Knee Primary Osteoarthritis Family Physician/Provider: Date of Discharge: 08/11/22 Discharge Diagnosis: [Left Knee Primary Osteoarthritis s/p TKA ] Hospital Course: [Patient underwent Left TKA on 08/09/22 and was admitted to regular floor. On night of surgery, began mechanical DVT prophylaxis. On POD #1, began chemical DVT prophylaxis. Made very good progress with therapy. Had some difficulty with pain control. Had some drainage from incision. On POD #2, pain control was better. An additional external suture was placed in his incision. Arrangements were made for home health therapy and was ready for discharge home. ] Labs and Pending Lab Test: Laboratory Tests 08/11/22 05:16: White Blood Count 8.9, Red Blood Count 3.55L, Hemoglobin 11.6L, Hematocrit 34L, Mean Corpuscular Volume 96, Mean Corpuscular Hemoglobin 33, Mean Corpuscular Hemoglobin Concent 34, Red Cell Distribution Width 14.3, Platelet Count 152, Mean Platelet Volume 10.4, Immature Granulocyte % (Auto) 0, Neutrophils (%) (Auto) 74, Lymphocytes (%) (Auto) 13, Monocytes (%) (Auto) 10, Eosinophils (%) (Auto) 3, Basophils (%) (Auto) 0, Neutrophils # (Auto) 6.6, Lymphocytes # (Auto) 1.2, Monocytes # (Auto) 0.8, Eosinophils # (Auto) 0.2, Basophils # (Auto) 0.0, Immature Granulocyte # (Auto) 0.0, Sodium Level 134L, Potassium Level 3.5L, Chloride Level 106, Carbon Dioxide Level 18L, Anion Gap 10, Blood Urea Nitrogen 22H, Creatinine 0.89, Estimat Glomerular Filtration Rate 86, BUN/Creatinine Ratio 25, Glucose Level 139H, Calcium Level 9.2, Corrected Calcium 9.9, Total Bilirubin 0.7, Aspartate Amino Transf (AST/SGOT) 10, Alanine Aminotransferase (ALT/SGPT) 19, Alkaline Phosphatase 55, Total Protein 5.7L, Albumin 3.1L Microbiology 08/09/22 MRSA Screen - Final, Complete MRSA not isolated Home Meds Active Reported Clotrimazole Unknown Strength Powder Unknown Dose MC UD Finasteride 5 Mg Tablet 5 Mg PO DAILY Zomig (Zolmitriptan) 5 Mg Tablet 5 Mg PO UD Vitamin B Complex 1 Each Capsule 1 Each PO DAILY Venlafaxine HCl 75 Mg Tab 75 Mg PO DAILY Triamcinolone Acetonide 0.1% Cream (Triamcinolone Acet) 0.1 % Cr 15 Gm TP UD Topiramate 25 Mg Tablet 25 Mg PO BID Flomax (Tamsulosin HCl) 0.4 Mg Cap 0.4 Mg PO DAILY Nitroglycerin 0.3 Mg Tab.subl 0.3 Mg SL UD Multivitamin 1 Each Tablet 1 Each PO DAILY Hydrocortisone 2.5 % Cream..g. 453.6 Gm TP UD Fluocinolone Acetonide 0.01 % Cream..g. 15 Gm TP UD Fluconazole 100 Mg Tablet 100 Mg PO BID Clopidogrel (Clopidogrel Bisulfate) 75 Mg Tablet 75 Mg PO DAILY Carvedilol 3.125 Mg Tablet 3.125 Mg PO BID Atorvastatin Calcium 10 Mg Tablet 10 Mg PO HS Aspirin 81 Mg Tab.chew 81 Mg PO DAILY Acetaminophen 325 Mg Tablet 325 Mg PO Q4H Assessment/Pt Instructions WBAT on Left Leg. Walker for assistance. F/U with Dr. Neil Mena in 2 weeks. Home Health therapy for motion/strengthening. Dry dressing daily to incision site. Discharge Instructions Discharge Diet: No Restrictions Discharge Physical Examination Vital Signs Vital Signs Date Time Temp Pulse Resp B/P (MAP) Pulse Ox O2 Delivery O2 Flow Rate FiO2 08/11/22 07:54 36.9 72 18 122/66 (84) 97 Room Air Extremity: Other (L Knee: Incision C/D/I with additional suture, +DF of ankle, no s/s of DVT) Allergies: Coded Allergies: Sulfa (Sulfonamide Antibiotics) (Verified Allergy, Unknown, reddened,itchy, 08/03/22) Discharge Summary Date of Admission Date of Discharge NEIL MENA MD Aug 11, 2022 10:39
--- NOTE | 2022-08-11 10:40 | D/C HH Face to Face Order ---
D/C Face to Face Orders Instructions for Patient Via [facility], Patient Instructions/FollowUp: WBAT on Left Leg with Walker, dry dressing daily to incision site, home health therapy for motion/strengthening. F/u in [address] Neil Mena Physician to follow Patient: Neil Mena Discharge Diet for Home: No Restrictions Patient Data-Allergies,Ht & Wt Patient Allergies: Coded Allergies: Sulfa (Sulfonamide Antibiotics) (Verified Allergy, Unknown, red dened,itchy, 08/03/22) Home Health Need/Face to Face Date of Face to Face: Aug 11, 2022 Clinical Findings: Muscle weakness, Pain with ambulation I have seen Pt jtff-sp-dxfu: Yes Discharged To: Home Diagnosis/Conditions: Left Knee Primary Osteoarthritis s/p TKA Patient is Homebound due to: Muscle weakness, Pain w/ambulation Homebound Status Due to the above stated illness, injury or surgical procedure (medical condition or diagnosis) and associated clinical findings, the patient is homebound because of his/her inability to leave home except with aid of a supportive device and/or person AND leaving the home requires a considerable and taxing effort or is medically contraindicated. Pt req the following assistanc: Walker Home Health Nursing Orders Home Health Services Order: Physical Therapy-Evaluate & Treat Therapy Orders Therapy Orders: Physical Therapy Therapy Specific Orders: Gait training, Increase strength/endurance, Restore ROM Certify Stmt I certify that this patient is under my care and that I, a nurse practitioner or a physician; a assistant media planner working with me, had a face to face encounter that - meets the physician face to face encounter requirements with this patient as dated. NEIL MENA MD Aug 11, 2022 10:40
[2022-08-11] MEDS ORDERED: HYDR-34 PO (10:43)
[2022-08-11] MEDS ORDERED: ASPI-1238 PO (10:43)
[2022-08-11 11:24] VITALS: BP 100/60
--- NOTE | 2022-08-11 12:06 | Physical Therapy Daily Note ---
PT Daily Note-Current Subjective Patient sitting in bed upon PT arrival, agreeable to treatment. Patient rates pain at 6/10 in left knee. Pain Section J - Health Conditions 1. Rarely or not at all 2. Occasionally 3. Frequently 4. Almost constantly 8. Unable to answer Pain Effect on Sleep: 2 Pain Interference with Therapy: 2 Pain Interference w/Day-to-Day: 2 Mental Status Patient Orientation: Person, Place, Time, Situation Transfers SCALE: Activities may be completed with or without assistive devices. 0-Rwmhkndzmt-kdqrelq completes the activity by him/herself with no assistance from a helper. 5-Set-up or Clean-up Assistance-helper sets up or cleans up; patient completes activity. [place] assists only prior to or following the activity. 4-Supervision or Touching Assistance-helper provides verbal cues and/or touching/steadying and/or contact guard assistance as patient completes activity. Assistance may be provided throughout the activity or intermittently. 3-Partial/Moderate Assistance-helper does LESS THAN HALF the effort. [place] lifts, holds or supports trunk or limbs, but provides less than half the effort. 2-Substantial/Maximal Assistance-helper does MORE THAN HALF the effort. [place] l ifts or holds trunk or limbs and provides more than half the effort. 9-Obmcpryhj-hmmewb does ALL the effort. Patient does none of the effort to complete the activity. Or, the assistance of 2 or more helpers is required for the patient to complete the activity. If activity was not attempted, code reason: 7-Patient Refused. 9-Not Applicable-not attempted and the patient did not perform the activity before the current illness, exacerbation or injury. 10-Not Attempted due to Environmental Limitations-(lack of equipment, weather restraints, etc.). 88-Not Attempted due to Medical Conditions or Safety Concerns. Roll Left & Right (QC): 6 Sit to Lying (QC): 6 Lying to Sitting/Side of Bed(Q: 6 Sit to Stand (QC): 4 Chair/Yjh-ay-Crrfq Xfer(QC): 4 Weight Bearing Right Lower Extremity: Right Full Weight Bearing Left Lower Extremity: Left Weight Bearing/Tolerated Gait Training Does the Patient Walk?: Yes Distance: 300 Walk 10 feet (QC): 4 Walk 50 ft with 2 Turns(QC): 4 Walk 150 ft (QC): 4 Gait Persons Needed: 1 Gait Assistive Device: FWW Exercises Supine Ex: Ankle pumps, Quad Set, Glut sets Supine Reps: 20 Seated Therapy Exercises: Long arc quads, Hamstring Curls, Hip abd/add Seated Reps: 10 PT Intermediate Goals Hydrotreater Operator Goals PT Hydrotreater Operator Goals Time Frame: Aug 21, 2022 Roll Left & Right (QC): 6 Sit to Lying (QC): 6 Lying-Sitting on Side/Bed(QC): 6 Sit to Stand (QC): 6 Chair/Uyf-cc-Uuikg Xfer(QC): 6 Toilet Transfer (QC): 6 Walk 10 feet (QC): 6 Walk 50ft with 2 Turns (QC): 6 Walk 150 ft (QC): 6 PT Plan Treatment/Plan Treatment Plan: Continue Plan of Care Treatment Plan: Bed Mobility, Education, Functional Activity Fang, Functional Strength, Gait, Safety, Therapeutic Exercise, Transfers Treatment Duration: Aug 21, 2022 Frequency: 11 times per week Estimated Hrs Per Day: .5 hour per day Patient and/or Family Agrees t: Yes Safety Risks/Education Patient Education: Gait Training, Transfer Techniques Teaching Recipient: Patient Teaching Methods: Demonstration, Discussion Response to Teaching: Verbalize Understanding, Return Demonstration Time Time In: 942 Time Out: 1006 DATE: Aug 11, 2022 Total Billed Treatment Time: 24 Total Billed Treatment Visit, gt, ex FRANCINE CHEATHAM PT Aug 11, 2022 12:06
== END 2022-08-11 14:08 | disposition home health service (06) ==
LOC: SDC 06:05 → 4TH 10:50 → SDC 08-11 14:08
PROVIDERS: ATTEND Orthopaedic Surgery
DX: M17.12 Unilateral primary osteoarthritis, left knee (principal); M25.762 Osteophyte, left knee; I10 Essential (primary) hypertension; I25.10 Atherosclerotic heart disease of native coronary artery without angina pectoris; E78.5 Hyperlipidemia, unspecified; N40.0 Benign prostatic hyperplasia without lower urinary tract symptoms; Z87.891 Personal history of nicotine dependence
CPT/HCPCS: 27447; 73560; 80053; 85025; 87081; 97110 ×2; 97116 ×2; 97162; 97165; 97530; C1713 ×3; C1776 ×2; 36415

== ENCOUNTER → 2022-08-24 | Outpatient (CLI) | payer MEDICARE ==
[~2022-08-24] MED LIST changes: +ASPI-1238 PO; +HYDR-34 PO
== END ==
LOC: ORTHO 11:00
PROVIDERS: ATTEND Orthopaedic Surgery
DX: Z47.89 Encounter for other orthopedic aftercare (principal)

== ENCOUNTER → 2022-09-23 | Outpatient (CLI) | payer MEDICARE ==
--- NOTE | 2022-09-23 12:25 | Diagnostic Imaging Report ---
INDICATION: Left knee pain. Comparison made study from 08/09/2022. AP and lateral views of the left knee show postoperative changes from joint arthroplasty. There is no evidence of loosening or periprosthetic fracture. IMPRESSION: Stable alignment of the left knee following joint arthroplasty. Dictated by: Dictated on workstation # [id number]
== END ==
LOC: ORTHO 11:07
PROVIDERS: ATTEND Orthopaedic Surgery
DX: M25.562 Pain in left knee (principal); Z96.652 Presence of left artificial knee joint
CPT/HCPCS: 73560